=== PATIENT | female | born 1960 | race African-American/Black ===

== ENCOUNTER 2021-04-16 16:04 | Emergency (ER) | payer OTHER ==
[~2021-04-16] VITALS: Ht 180.3 cm; Wt 96.2 kg
[2021-04-16 16:06] VITALS: BP 147/79
[2021-04-16] MEDS ORDERED: KETOROLAC TROMETH 60MG/2ML VIAL IM ONE (16:45)
== END 2021-04-16 17:43 | disposition home or self-care (01) ==
LOC: ER 16:04
DX: M17.12 Unilateral primary osteoarthritis, left knee (principal); E11.9 Type 2 diabetes mellitus without complications; Z88.0 Allergy status to penicillin
CPT/HCPCS: 73562; 96372; 99283; J1885

== ENCOUNTER 2022-05-02 05:54 | Emergency (ER) | payer OTHER ==
[~2022-05-02] VITALS: Ht 180.3 cm; Wt 99.8 kg
[2022-05-02 08:18] VITALS: BP 122/90
[2022-05-02] MEDS ORDERED: KETOROLAC TROMETH 60MG/2ML VIAL IM ONE (08:45)
== END 2022-05-02 09:00 | disposition home or self-care (01) ==
LOC: ER 05:54
DX: S46.911A Strain of unspecified muscle, fascia and tendon at shoulder and upper arm level, right arm, initial encounter (principal); E11.9 Type 2 diabetes mellitus without complications; Z88.0 Allergy status to penicillin; X58.XXXA Exposure to other specified factors, initial encounter; Y93.89 Activity, other specified; Y92.89 Other specified places as the place of occurrence of the external cause; Y99.8 Other external cause status
CPT/HCPCS: 73030; 96372; 99283; J1885

== ENCOUNTER 2023-07-22 20:59 | Emergency (ER) | payer OTHER ==
[~2023-07-22] VITALS: Ht 177.8 cm; Wt 102.2 kg
[2023-07-23 00:19] VITALS: BP 156/84; PULSE 92; RESP 17; TEMP 99.3; O2SAT 95
[2023-07-23] MEDS ORDERED: HYDROcodone-ACET 5/325MG TAB PO ONE (01:00)
[2023-07-23] MEDS ORDERED: ONDANSETRON ODT 4 MG TAB PO ONE (01:00)
[2023-07-23] MEDS ORDERED: HYDR-4902 PO (02:36)
[2023-07-23] MEDS ORDERED: ZOFR4T PO (02:36)
== END 2023-07-23 03:45 | disposition home or self-care (01) ==
LOC: ER 20:59
DX: M25.512 Pain in left shoulder (principal); E11.9 Type 2 diabetes mellitus without complications; Z88.0 Allergy status to penicillin
CPT/HCPCS: 73030; 99283; Q0162